=== PATIENT | male | born 1955 | race Caucasian/White ===

== ENCOUNTER 2019-08-26 13:06 | Emergency (ER) | payer OTHER ==
[2019-08-26] MEDS ORDERED: ONDANSETRON HCL INJ/PF 4 MG/2 ML SDV IV ONE ×2 (13:36→14:07)
--- NOTE | 2019-08-26 13:38 | ER Document Report ---
ED Medical Screen (RME) - General Chief Complaint: Rectal Bleeding Stated Complaint: BLOOD IN URINE/DIZZINESS Time Seen by Provider: 08/26/19 13:27 Notes: 64-year-old male with recent diagnosis of ulcerative colitis in July presents to the emergency department with chief complaint of generalized abdominal pain and 1 week of bloody diarrhea. Patient was instructed to seek emergency treatment if he had worsening pain or blood in his stool prompting him to seek emergency care. Patient states he has had about 10 episodes bloody diarrhea in the last day. Patient has generalized, acute abdominal pain and states that "I could not take it anymore". No fevers or chills. Complains of significant nausea with no vomiting. Exam: Nontoxic-appearing in mild distress, abdominal exam limited in triage but acute tenderness to light palpation in all quadrants I have greeted and performed a rapid initial assessment of this patient. A comprehensive ED assessment and evaluation of the patient, analysis of test results and completion of medical decision making process will be conducted by an additional ED providers. - Related Data Allergies/Adverse Reactions: gabapentin Adverse Reaction (Verified 08/26/19 13:23) ibuprofen [From Motrin] Adverse Reaction (Verified 08/26/19 13:23) Physical Exam - Vital signs Vitals: Temp Pulse Resp BP Pulse Ox 98.0 F 112 H 16 135/86 H 99 08/26/19 13:14 08/26/19 13:14 08/26/19 13:14 08/26/19 13:14 08/26/19 13:14 Course - Vital Signs Vital signs: Temp Pulse Resp BP Pulse Ox 98.0 F 112 H 16 135/86 H 99 08/26/19 13:14 08/26/19 13:14 08/26/19 13:14 08/26/19 13:14 08/26/19 13:14
[2019-08-26] MEDS ORDERED: NORMAL SALINE 500 ML IV ONE (13:54)
[2019-08-26] MEDS ORDERED: NORMAL SALINE 1000 ML 1,000 ML IV ONE ×2 (13:54→14:08)
[2019-08-26] MEDS ORDERED: HYDROMORPHONE HCL INJ/PF 2 MG/ML AMPULE IV ONE ×2 (14:07→19:42)
[2019-08-26] MEDS ORDERED: METHYLPREDNISOLONE INJ 125 MG/2 ML SDV IV ONE (14:07)
--- NOTE | 2019-08-26 14:07 | ER Document Report ---
ED General - General Chief Complaint: Rectal Bleeding Stated Complaint: BLOOD IN URINE/DIZZINESS Time Seen by Provider: 08/26/19 13:27 [facility] - Follow up as needed - Related Data Allergies/Adverse Reactions: gabapentin Adverse Reaction (Verified 08/26/19 13:23) ibuprofen [From Motrin] Adverse Reaction (Verified 08/26/19 13:23) Past Medical History - Social History Smoking Status: Former Smoker Family History: Reviewed & Not Pertinent Patient has suicidal ideation: No Patient has homicidal ideation: No Physical Exam - Vital signs Vitals: Temp Pulse Resp BP Pulse Ox 98.0 F 112 H 16 135/86 H 99 08/26/19 13:14 08/26/19 13:14 08/26/19 13:14 08/26/19 13:14 08/26/19 13:14 - Notes Notes: Patient presents to the emergency department planing generalized abdominal pain is been going on for about the past 3 weeks. Appetite is been decreased last night had one episode of vomiting one episode this morning. He denies any fevers with this. Reports that his head about 10-12 episodes of watery bloody diarrhea been going on for the same amount of time. Denies any clots. Not really noticeable color to stools been. What is been a little lightheaded for the past 2 or 3 days. Pain is similar to his previous episodes of ulcerative colitis with his last episode in June he denies any blood in his urine but says it has been dark may be orange color with no dysuria or flank pain Patient also reports that he said 1-2 episodes over the past week of some substernal chest pain. Feels like a pressure sensation. Mild been associate with some diaphoresis but no shortness of breath nausea or vomiting. He would get better with movement sometimes worse with movement. Does not change with breathing or cough however. Report that has been laying in bed for the past w [place] or so just because of generalized weakness. Past medical history seen for hypertension and ulcerative colitis. He has no history of coronary artery disease diabetes elevated cholesterol. Last c olonoscopy was in June. Social history does not smoke or drink at all. Family history is noncontributory Review of systems pertinent positives and negatives in HPI otherwise all the systems were reviewed and acutely negative PHYSICIAN EXAM -vital signs are noted triage note and note from triage reviewed GENERAL: Well-appearing, well-nourished and in _mild distress HEAD: Atraumatic, normocephalic. EYES: Pupils equal round and reactive to light, extraocular movements intact, sclera anicteric, conjunctiva are normal. ENT: nares patent, oropharynx clear without exudates. Dry mucous membranes. NECK: supple without lymphadenopathy LUNGS: Breath sounds clear to auscultation bilaterally and equal. No wheezes rales or rhonchi. HEART: Regular rate and rhythm without murmurs ABDOMEN: Soft, very minimal but diffuse tenderness peritoneal signs, normoactive bowel sounds. EXTREMITIES: No deformity, no edema. NEUROLOGICAL: No focal neurological deficits. Moves all extremities spontaneously and on command. PSYCH: Normal mood, normal affect. SKIN: Warm, Dry, normal turgor, no rashes or lesions noted. BACK-nontender in the midline Stool was Hemoccult positive Differential diagnosis includes angina hydration anemia of colitis Course - Re-evaluation Re-evalutation: 08/26/19 17:12 ED patient remained stable was given IV fluids and pain medicines. After CT was obtained he was given Zosyn Medical decision making patient presents with bowel pain and bloody diarrhea with evidence of diverticulitis. Patient will need admission to the hospital. [facility] 08/26/19 19:38 [facility]ult the [facility] they advises that emergency would call us back. We were contacted at 1930 and the patient has been accepted Dictation was done using voice recognition software. There may be some grammatical errors which are unintentional I discussed results of laboratory findings and diagnostic test with patient/family. The treatment plan was explained and I reviewed the discharge instructions with them. Questions were answered. The patient/family verbalizes understanding - Vital Signs Vital signs: Temp Pulse Resp BP Pulse Ox 98.0 F 112 H 20 113/79 95 08/26/19 13:14 08/26/19 13:14 08/26/19 19:01 08/26/19 19:00 08/26/19 19:01 - Laboratory Result Diagrams: 08/26/19 13:55 08/26/19 13:55 Laboratory results interpreted by me: 08/26/19 08/26/19 13:55 14:20 WBC 11.8 H Lymph % (Auto) 12.0 L Absolute Neuts (auto) 8.9 H Urine Protein 30 H Urine Blood SMALL H Urine Urobilinogen 2.0 H - Diagnostic Test Radiology reviewed: Reports reviewed - EKG Interpretation by Me Additional EKG results interpreted by me: 08/26/19 17:12 Show EKG was somewhat difficult to interpret there is a lot of baseline artifact but Rhythm appeared to be sinus with a right bundle some nonspecific changes. It was difficult to map out the P waves but they wanted there were 1-2 present and on the monitor he was going in sinus. Repeat EKG now shows obvious P waves with a sinus rhythm right bundle branch block. Normal normal axis. No old EKGs for comparison Discharge - Discharge Clinical Impression: Abdominal pain Qualifiers: Abdominal location: generalized Qualified Code(s): R10.84 - Generalized abdominal pain Diverticulitis large intestine Qualifiers: Diverticulitis bleeding: with bleeding Disposition: [facility] - Follow up as needed
[2019-08-26 14:15] LABS: ABSOLUTE BASOPHILS # (AUTO) 0.1 10^3/uL (0.0-0.2); ABSOLUTE EOSINOPHILS # (AUTO) 0.3 10^3/uL (0.0-0.6); ABSOLUTE LYMPHOCYTES (AUTO) 1.4 10^3/uL (0.5-4.7); ABSOLUTE NEUT (AUTO) 8.9 10^3/uL (1.7-8.2); BASOPHILS % (AUTO) 1.1 % (0-2); EOSINOPHILS % (AUTO) 2.9 % (0-6); HEMATOCRIT 45.9 % (37.9-51.0); HEMOGLOBIN 15.8 g/dL (13.5-17.0); MEAN CORPUSCULAR HEMOGLOBIN 30.9 pg (27.0-33.4); MEAN CORPUSCULAR HGB CONC 34.4 g/dL (32.0-36.0); MEAN CORPUSCULAR VOLUME 90 fl (80-97); MONOCYTES % (AUTO) 8.1 % (3-13); PLATELET COUNT 271 10^3/uL (150-450); RED BLOOD COUNT 5.11 10^6/uL (4.35-5.55); RED CELL DISTRIBUTION WIDTH 13.5 % (11.5-14.0); SEGMENTED NEUTROPHILS % (AUTO) 75.9 % (42-78); TOTAL CELLS COUNTED % (AUTO) 100 %; WHITE BLOOD COUNT 11.8 10^3/uL (4.0-10.5)
[2019-08-26 14:37] LABS: ALKALINE PHOSPHATASE 106 U/L (38-126); ANION GAP 13 (5-19); ASPARTATE AMINO TRANSFERASE 23 U/L (17-59); BILIRUBIN,DIRECT 0.2 mg/dL (0.0-0.4); BILIRUBIN,TOTAL 1.3 mg/dL (0.2-1.3); BLOOD UREA NITROGEN 9 mg/dL (7-20); CALCIUM 9.2 mg/dL (8.4-10.2); CARBON DIOXIDE 28 mmol/L (22-30); CHLORIDE 98 mmol/L (98-107); GLUCOSE 104 mg/dL (75-110); TOTAL PROTEIN 7.9 g/dL (6.3-8.2)
[2019-08-26 14:45] LABS: APPEARANCE,URINE SLIGHTLY-CLOUDY; BILIRUBIN,URINE NEGATIVE (NEGATIVE); COLOR,URINE AMBER; GLUCOSE, URINE NEGATIVE (NEGATIVE); KETONES,URINE NEGATIVE (NEGATIVE); LEUKOCYTE ESTERASE,URINE NEGATIVE (NEGATIVE); NITRITE,URINE NEGATIVE (NEGATIVE); PROTEIN,URINE 30 mg/dL (NEGATIVE); URINE SPECIFIC GRAVITY 1.018
--- NOTE | 2019-08-26 14:47 | RADIOLOGY REPORT (SQ) ---
EXAM DESCRIPTION: CHEST SINGLE VIEW COMPLETED DATE/TIME: 08/26/2019 2:40 pm REASON FOR STUDY: Chest pain COMPARISON: None. EXAM PARAMETERS: NUMBER OF VIEWS: One view. TECHNIQUE: Single frontal radiographic view of the chest acquired. RADIATION DOSE: NA LIMITATIONS: None. FINDINGS: LUNGS AND PLEURA: No opacities, masses or pneumothorax. No pleural effusion. MEDIASTINUM AND HILAR STRUCTURES: No masses. Contour normal. HEART AND VASCULAR STRUCTURES: Heart normal in size. Normal vasculature. BONES: No acute findings. HARDWARE: None in the chest. OTHER: No other significant finding. IMPRESSION: NO ACUTE RADIOGRAPHIC FINDING IN THE CHEST. TECHNICAL DOCUMENTATION: JOB ID: [id number] [employer]- All Rights Reserved Reading location - IP/workstation name: [email or web address]
[2019-08-26 15:06] LABS: INTERNATIONAL RATION (INR) 1.08
--- NOTE | 2019-08-26 15:53 | RADIOLOGY REPORT (SQ) ---
EXAM DESCRIPTION: CT ABD/PELVIS WITH IV ONLY COMPLETED DATE/TIME: 08/26/2019 3:36 pm REASON FOR STUDY: abd pain, blood stool recent dx ulcerative colitis COMPARISON: None. TECHNIQUE: CT scan of the abdomen and pelvis performed using helical scanning technique with dynamic intravenous contrast injection. No oral contrast. Images reviewed with lung, soft tissue, and bone windows. Reconstructed coronal and sagittal MPR images reviewed. Delayed images for evaluation of the urinary system also acquired. All images stored on PACS. All CT scanners at this facility use dose modulation, iterative reconstruction, and/or weight based d osing when appropriate to reduce radiation dose to as low as reasonably achievable (ALARA). [facility]: Dose Right [facility]: CareDose [facility]: Dose Right [facility]: Teradose 4D [facility]: [employer] CONTRAST TYPE AND DOSE: contrast/concentration: Isovue 350.00 mg/ml; Total Contrast Delivered: 100.0 ml; Total Saline Delivered: 72.0 ml RENAL FUNCTION: GFR > 60. RADIATION DOSE: CT Rad equipment meets quality standard of care and radiation dose reduction techniq ues were employed. CTDIvol: 13.5 - 19.1 mGy. DLP: 1737 mGy-cm.. LIMITATIONS: None. FINDINGS: LOWER CHEST: No significant findings. No nodules or infiltrates. LIVER: Normal size. No masses. No dilated ducts. SPLEEN: Normal size. No focal lesions. PANCREAS: No masses. No significant calcifications. No adjacent inflammation or peripancreatic fluid collections. Pancreatic duct not dilated. GALLBLADDER: No identified stones by CT criteria. No inflammatory changes to suggest cholecystitis. ADRENAL GLANDS: No significant masses or asymmetry. RIGHT KIDNEY AND URETER: No solid masses. No significant calcifications. No hydronephrosis or hyd roureter. LEFT KIDNEY AND URETER: No solid masses. No significant calcifications. No hydronephrosis or hydr oureter. AORTA AND VESSELS: No aneurysm. No dissection. Renal arteries, SMA, celiac without stenosis. RETROPERITONEUM: No retroperitoneal adenopathy, hemorrhage or masses. BOWEL AND PERITONEAL CAVITY: Extensive diverticulosis. No focal thickening of the bowel wall. There is mild inflammatory change in the distal descending colon and sigmoid colon. Findings a more typic al mild diverticulitis than ulcerative colitis. APPENDIX: Normal. PELVIS: No mass. No free fluid. Normal bladder. ABDOMINAL WALL: No masses. No hernias. BONES: No significant or acute findings. OTHER: No other significant finding. IMPRESSION: Mild diverticulitis. No findings typical of ulcer colitis. TECHNICAL DOCUMENTATION: JOB ID: [id number] Quality ID # [id number]: Final reports with documentation of one or more dose reduction techniques (e.g., Au tomated exposure control, adjustment of the mA and/or kV according to patient size, use of iterative reconstruction technique) 2010 [employer]- All Rights Reserved Reading location - IP/workstation name: [email or web address]
[2019-08-26] MEDS ORDERED: AMPICILLIN SOD/SULBACTAM 3 GM VIAL IV ONE (17:06)
[2019-08-26] MEDS ORDERED: PIPERACILLIN/TAZOBACTAM 3.375 GM VIAL IV ONE (17:11)
--- NOTE | 2019-08-26 17:17 | EKG REPORT ---
SEVERITY:- ABNORMAL ECG - SINUS RHYTHM RIGHT BUNDLE BRANCH BLOCK : Confirmed by: Laura Torres 26-Aug-2019 17:15:43
--- NOTE | 2019-08-26 17:17 | EKG REPORT ---
SEVERITY:- ABNORMAL ECG - SINUS RHYTHM RIGHT BUNDLE BRANCH BLOCK : Confirmed by: Laura Torres 26-Aug-2019 17:15:58
[2019-08-26 22:42] VITALS: BP 121/79
== END 2019-08-26 23:10 ==
LOC: ER 13:06
DX: K57.33 Diverticulitis of large intestine without perforation or abscess with bleeding (principal); R10.84 Generalized abdominal pain; R42 Dizziness and giddiness; R31.9 Hematuria, unspecified; Z88.6 Allergy status to analgesic agent
CPT/HCPCS: 93005; 96376; 99284; 96361; 96375; 96365; 36415; 87040; 83690; 85025; 85610; 80053; 81001; 84484; 71045; 74177; 93010; J2930; J1170; J2405; J7030; J7040; J2543

== ENCOUNTER → 2020-03-03 | Outpatient (CLI) | payer OTHER ==
[2020-03-03 13:41] LABS: A TYPE INFLUENZA AG NEGATIVE (NEGATIVE); B INFLUENZA AG NEGATIVE (NEGATIVE)
[2020-03-03 16:00] VITALS: BP 102/68
--- NOTE | 2020-03-03 16:00 | ER RDC ASSESSMENT REPORT ---
Intake - In the Last 14 days Have you traveled outside [place]?: No Have you been in close contact with someone CONFIRMED: No Worked in Healthcare?: No - Symptoms Subjective Fever(Oil Trough feverish): Yes Chills: Yes Muscule Aches: Yes Runny Nose: No Sore Throat: No Cough (New or worsening chronic cough): No Shortness of breath: No Nausea or Vomiting: No Headache: No Abdominal Pain: Yes Diarrhea(3 or more loose stools in last 24 hours): No - Do you have any of the following Chronic lung disease: Asthma or emphysema or COPD: No Cystic Fibrosis: No Diabetes: No High Blood Pressure: No Cardiovascular Disease: No Chronic Kidney Disease: No Chronic Liver Disease: No Chronic blood disorder like Sickle Cell Disease: No Weak immune system due to disease or medication: Yes Neurologic condition that limits movement: No Developmental delay - Moderate to Severe: No Recent (within past 2 weeks) or current : No Morbid Obesity (>100 pounds over ideal weight): No - Objective Vital Signs: 5'6" 206 lb Temperature: 101.4 F Pulse Rate: 108 Respiratory Rate: 18 Blood Pressure: 102/68 O2 Sat by Pulse Oximetry: 93 Objective: Given above, testing performed: flu, strep, covid Disposition: Home; Selfcare General - General Chief Complaint: Abdominal Pain Time Seen by Provider: 03/03/20 12:20 Mode of Arrival: Ambulatory Information source: Patient - HPI Similar symptoms previously: Yes - Crohn's flare-up Recently seen / treated by doctor: No Notes: 65-year-old male presents to [facility] clinic for COVID-19 testing. Patient reports no known exposure to COVID positive individual. Patient states physician referred him over for testing due to fever and abdominal pain. Patient feels the symptoms may be related to a Crohn's flareup which he has had previously. Patient is reporting onset of symptoms 03/02/2020. He is complaining of mild to moderate abdominal pain, chills, myalgia, rhinorrhea, and fever. T-max 101.4. No relieving factors. No exacerbating factors. Patient is denying any diarrhea, blood in stool, nausea or vomiting, sore throat, runny nose, cough, shortness of breath, or headache. Patient is currently on prednisone and Remicade infusion for Crohn's disease. - Related Data Allergies/Adverse Reactions: gabapentin Adverse Reaction (Verified 08/26/19 13:23) ibuprofen [From Motrin] Adverse Reaction (Verified 08/26/19 13:23) Home Medications: Lisinopril, mesalamine, Remicade, prednisone Past Medical History - General Information source: Patient - Social History Smoking Status: Former Smoker Family History: Reviewed & Not Pertinent - Past Medical History Cardiac Medical History: Reports: Hx Hypertension Pulmonary Medical History: Reports: None EENT Medical History: Reports: None Neurological Medical History: Reports: None Endocrine Medical History: Reports: None Renal/ Medical History: Reports: None Malignancy Medical History: Reports None GI Medical History: Reports: Hx Crohn's Disease Musculoskeletal Medical History: Reports Hx Arthritis Skin Medical History: Reports None Psychiatric Medical History: Reports: None Traumatic Medical History: Reports: None Infectious Medical History: Reports: None Past Surgical History: Reports: Hx Orthopedic Surgery - back Physical Exam - General General appearance: Appears well In distress: None Notes: PHYSICAL EXAMINATION: GENERAL: Well-appearing and in no acute distress. HEAD: Atraumatic, normocephalic. EYES: sclera anicteric, conjunctiva are normal. ENT: nares patent. Moist mucous membranes. NECK: Normal range of motion, supple without lymphadenopathy LUNGS: CTAB and equal. No wheezes rales or rhonchi. HEART: Regular rate and rhythm without murmurs ABDOMEN: Soft, tender, normal bowel sounds, no guarding. EXTREMITIES: Normal range of motion, no pitting edema. No cyanosis. NEUROLOGICAL: Cranial nerves grossly intact. Normal speech. PSYCH: Normal mood, normal affect. SKIN: Warm, Dry, normal turgor, no rashes or lesions noted Diagnostic Results Laboratory Results: 03/03/20 12:33 Throat Throat Culture - Pending Influenza A (Rapid) NEGATIVE (NEGATIVE) 03/03/20 12:32 Influenza B (Rapid) NEGATIVE (NEGATIVE) 03/03/20 12:32 Group A Strep Rapid NEGATIVE (NEGATIVE) 03/03/20 12:32 Patient Education/Counseling Counseling/Education: Patient presents with GI symptoms and fever worrisome for possible Covid 19. Patient does not have emergency worrying symptoms such as difficulty breathing, shortness of breath, chest pain, pressure, confusion or cyanosis. Mild tachycardia noted, but likely related to abdominal discomfort and fever. Patient reports he will be calling to follow-up with his GI specialist for further direction. Patient appears suitable for discharge as vital signs are stable and patient is nontoxic in appearance. Good return precautions have been discussed with patient, patient verbalized understanding and is agreeable with discharge plan of care at this time. Guidance for worsening S/SX: As a person under investigation for Covid 19, the [facility], division of public health advises you to adhere to the following guidance until your test results are reported to you. If your test result is positive, you will receive additional information from your provider and your local health department at that time. Remain at home until you are cleared by the health provider or public health authorities. Keep a log of visitors to your home, notify any visitors to your home of your isolation status. If you plan to move to a new address or leave the county, notify the local health department in your County. Call your doctor or seek care if you have an urgent medical need. Before seeking medical care, call ahead to get instructions from the provider before arriving at the medical office clinic or hospital. Notify them that you are being tested for the virus that causes Covid 19 so that arrangements can be made, as necessary, to prevent transmission to others in the healthcare setting. Next, notify the local health department in your county. If a medical emergency arises and you need to call 911, inform the first responders that you are being tested for the virus that causes Covid 19. Next, notify the local health department in your county. RDC Discharge - Discharge Clinical Impression: Gastrointestinal complaints, Encounter for screening laboratory testing for COVID-19 virus Condition: Stable Disposition: Home; Selfcare
== END ==
LOC: RDC 12:03
PROVIDERS: ATTEND Registered Nurse
DX: Z20.828 Contact with and (suspected) exposure to other viral communicable diseases (principal); R50.9 Fever, unspecified; J34.89 Other specified disorders of nose and nasal sinuses; R10.9 Unspecified abdominal pain; M79.10 Myalgia, unspecified site; K50.90 Crohn's disease, unspecified, without complications; I10 Essential (primary) hypertension; Z88.6 Allergy status to analgesic agent; Z87.891 Personal history of nicotine dependence
CPT/HCPCS: 87070; 87880; 87635; 87804; C9803; 99201; 99211